=== PATIENT | female | born 1990 ===

== ENCOUNTER 2017-08-10 10:26 | Emergency (ER) | payer OTHER ==
[2017-08-10 11:39] VITALS: BMI 20.1
[2017-08-10 11:58] VITALS: RESP 18; TEMP 98.6
[2017-08-10 12:37] LABS: PH,URINE 6.5 (4.7-8.0); URINE APPEARANCE CLOUDY (CLEAR); URINE BILIRUBIN NEGATIVE (NEGATIVE); URINE BLOOD SMALL (NEGATIVE); URINE COLOR LIGHT YELLOW (YELLOW); URINE GLUCOSE (UA) NEGATIVE (NEGATIVE); URINE LEUKOCYTE ESTERASE LARGE Leu/uL (NEGATIVE); URINE PROTEIN NEGATIVE mg/dL (<30 mg/dL); URINE UROBILINOGEN 0.2 E.U./dL (<1 E.U./dL)
[2017-08-10 12:58] LABS: URINE WBC 15 - 20 /hpf (0-6)
[2017-08-10 12:59] LABS: URINE BACTERIA MOD (NEG)
[2017-08-10] MEDS ORDERED: cefTRIAXone (Rocephin) 250 mg Inj IM STA (13:22)
--- NOTE | 2017-08-10 13:22 | ED PDOC ---
Arrival/HPI - General Chief Complaint: Female Genitourinary Time Seen by Provider: 08/10/17 11:59 Historian: Patient - History of Present Illness Narrative History of Present Illness (Text): 08/10/17 13:22 A 27 year old female presents to the emergency department complaining of vaginal pain and discharge for 4 days. Patient describes the pain as a burning sensation and notes white thick discharge. She took Monistat, with minimal to no relief. Patient reports her symptoms began shortly after having unprotected sex with same partner. Patient denies any fever, chills, nausea, vomiting, abdominal pain, chest pain, shortness of breath or any other complaints. Time/Duration: Other (4 days) Symptom Course: Unchanged Quality: Burning Context: Home Past Medical History - Provider Review Nursing Documentation Reviewed: Yes - Travel History Have you recently traveled outside [place] w/in the past 3 mons?: No - Tetanus Immunization Tetanus Immunization: Unknown - Psychiatric Hx Substance Use: No Family/Social History - Physician Review Nursing Documentation Reviewed: Yes Family/Social History: No Known Family HX Smoking Status: Light Smoker < 10 Cigarettes Daily Hx Alcohol Use: Yes Frequency of alcohol use: Socially Hx Substance Use: No Allergies/Home Meds Allergies/Adverse Reactions: Allergies No Known Allergies Allergy (Verified 08/10/17 11:38) Review of Systems - Physician Review All systems were reviewed & negative as marked: Yes - Review of Systems Constitutional: absent: Fevers, Night Sweats Respiratory: absent: SOB Cardiovascular: absent: Chest Pain Gastrointestinal: absent: Abdominal Pain, Constipation, Diarrhea, Nausea, Vomiting Genitourinary Female: Vaginal Discharge, Other (Vaginal pain) Musculoskeletal: absent: Arthralgias, Back Pain, Neck Pain Skin: absent: Rash, Pruritis Neurological: absent: Headache, Dizziness Psychiatric: absent: Anxiety, Depression Physical Exam Vital Signs Reviewed: Yes Vital Signs Temp Pulse Resp BP Pulse Ox 08/10/17 11:57 98.6 F 89 18 135/83 98 Temperature: Afebrile Blood Pressure: Normal Pulse: Regular Respiratory Rate: Normal Appearance: Positive for: Well-Appearing, Non-Toxic, Comfortable Pain Distress: None Mental Status: Positive for: Alert and Oriented X 3 - Systems Exam Head: Present: Atraumatic, Normocephalic Conjunctiva: Present: Normal Mouth: Present: Moist Mucous Membranes Neck: Present: Normal Range of Motion Respiratory/Chest: Present: Clear to Auscultation, Good Air Exchange. No: Respiratory Distress, Accessory Muscle Use Cardiovascular: Present: Regular Rate and Rhythm, Normal S1, S2. No: Murmurs Abdomen: Present: Normal Bowel Sounds. No: Tenderness, Distention, Peritoneal Signs, Rebound, Guarding Genitourinary/Pelvic Exam: Present: Vaginal Discharge (White thick discharge), Cervical os Closed, Other (tendernes to vaginal opening. chaparoned by AURE traylor). No: Normal External Genitalia (erythema to vaginal opening), Vaginal Lesions, Adenexal Tenderness, Adenexal Mass, Cervical Motion Tendernes Back: Present: Normal Inspection. No: CVA Tenderness Upper Extremity: Present: Normal Inspection. No: Cyanosis, Edema Lower Extremity: Present: Normal Inspection. No: Edema Neurological: Present: GCS=15, CN II-XII Intact, Speech Normal Skin: Present: Warm, Dry, Normal Color. No: Rashes Psychiatric: Present: Alert, Oriented x 3, Normal Insight, Normal Concentration Medical Decision Making ED Course and Treatment: 08/10/17 13:22 Impression: A 27 year old female with vaginal discharge and irritation Plan: -- Urine culture and Urinalysis -- Chlamydia/GC -- Zithromax, Rocephin and Diflucan -- Reassess and disposition Progress Notes: pt is non toxic well appearing; no distress. pt with vaginal discharge. will treat for STD. UA; + bacteria, + leukocytes; will d/c home with bactrim for UTI advised f/u with [facility] within the next 2 days. advised immediate return if symptoms worsen,persist or if new symptoms develop. Patient verbalizes understanding of discharge instructions and need for immediate followup. all aspects of this case were discussed the attending of record. 08/10/17 14:55 impression; vaginal discharge, UTI Bactrim 1 tablet twice daily 3 days Motrin every 6 hours as needed for pain Followup with primary care physician within the next 2 days Follow up with the [facility] within the next 2 days Return if symptoms worsen persist or if new symptoms develop. - Lab Interpretations Lab Results: Lab Results 08/10/17 12:28: Urine Color Light yellow, Urine Appearance Cloudy, Urine pH 6.5 , Ur Specific [place] 1.010, Urine Protein Negative, Urine Glucose (UA) Negative , Urine Ketones Negative, Urine Blood Small H, Urine Nitrate Negative, Urine Bilirubin Negative, Urine Urobilinogen 0.2, Ur Leukocyte Esterase Large H, Urine RBC 5 - 10, Urine WBC 15 - 20, Ur Epithelial Cells 4 - 5, Urine Bacteria Mod - Medication Orders Current Medication Orders: Discontinued Medications Azithromycin (Zithromax) 1,000 mg PO STAT STA PRN Reason: Protocol Stop: 08/10/17 13:23 Last Admin: 08/10/17 13:52 Dose: 1,000 mg Ceftriaxone Sodium (Rocephin) 250 mg IM STAT STA PRN Reason: Protocol Stop: 08/10/17 13:23 Last Admin: 08/10/17 13:53 Dose: 250 mg IM Administration Charges Document 08/10/17 13:53 EQ (Rec: 08/10/17 13:54 EQ [id number]) Injection Site MAR Injection Site Left Deltoid Charges for Administration # of IM Administrations 1 Fluconazole (Diflucan) 150 mg PO STAT STA PRN Reason: Protocol Stop: 08/10/17 13:24 Last Admin: 08/10/17 13:53 Dose: 150 mg - Scribe Statement The provider has reviewed the documentation as recorded by the Mark Marquis Provider Scribe Attestation: All medical record entries made by the Mark were at my direction and personally dictated by me. I have reviewed the chart and agree that the record accurately reflects my personal performance of the history, physical exam, medical decision making, and the department course for this patient. I have also personally directed, reviewed, and agree with the discharge instructions and disposition. Disposition/Present on Arrival - Present on Arrival Any Indicators Present on Arrival: No History of DVT/PE: No History of Uncontrolled Diabetes: No Urinary Catheter: No History of Decub. Ulcer: No History Surgical Site Infection Following: None - Disposition Have Diagnosis and Disposition been Completed?: Yes Diagnosis: Vaginal discharge, UTI (urinary tract infection) Disposition: HOME/ ROUTINE Disposition Time: 14:15 Patient Plan: Discharge Condition: GOOD Discharge Instructions (ExitCare): Urinary Tract Infections in Adults, Vaginal Discharge in Adults Additional Instructions: Bactrim 1 tablet twice daily 3 days Motrin every 6 hours as needed for pain Followup with primary care physician within the next 2 days Follow up with the [facility] within the next 2 days Return if symptoms worsen persist or if new symptoms develop. Prescriptions: Sulfamethoxazole/Trimethoprim [Bactrim DS 800 mg-160 mg] 1 tab PO BID #6 tab Referrals: Gabino Mcneil MD [Staff Provider] - Follow up with primary Rebecca Faith MD [Staff Provider] - Follow up with primary [facility] [Outside] - [facility] [Outside] - Follow up with primary Forms: [employer] (Yoruba), WORK NOTE
[2017-08-10 15:30] VITALS: BP 129/82; PULSE 77; O2SAT 99
== END 2017-08-10 15:00 | disposition home or self-care (01) ==
LOC: ED 10:26
DX: N39.0 Urinary tract infection, site not specified (principal); N89.8 Other specified noninflammatory disorders of vagina; F17.210 Nicotine dependence, cigarettes, uncomplicated
CPT/HCPCS: 81001; 87086; 87491; 87591; 96372; 99283; J0696